=== PATIENT | female | born 1980 | race Caucasian/White ===

== ENCOUNTER 2016-08-30 21:10 | Inpatient (IN) | payer OTHER ==
[2016-08-30] MEDS ORDERED: NO HOME MEDICATION (21:48)
[2016-08-31] MEDS ORDERED: VENTOLIN HFA18 G2 (14:41)
[2016-08-31] MEDS ORDERED: LIPITOR20 M1 PO (14:43)
[2016-08-31] MEDS ORDERED: DICLOFENAC SODI75 M2 PO (14:44)
[2016-08-31] MEDS ORDERED: PROTONIX40 M2 PO (14:45)
[2016-09-01] MEDS ORDERED: OXYCODONE HCL5 M1 PO (11:17)
[2016-09-01] MEDS ORDERED: TYLENOL325 M2 PO (11:19)
[2016-09-01] MEDS ORDERED: ASPIRIN325 M3 PO (11:22)
[2016-09-01] MEDS ORDERED: TUMS200 MG PO (11:23)
[2016-09-01] MEDS ORDERED: DULCOLAX10 MG PR (11:24)
[2016-09-01] MEDS ORDERED: DULCOLAX5 M1 PO (11:25)
[2016-09-01] MEDS ORDERED: MILK OF MAGNESIA PO (11:26)
[2016-09-01] MEDS ORDERED: SENOKOT-S TABL1 EACH PO (11:27)
[2016-09-01] MEDS ORDERED: BENADRYL25 M3 PO (11:29)
== END 2016-09-01 12:20 | DRG 494 ==
LOC: 5EB 21:10 → ORE 08-31 16:23 → PACU 08-31 19:36 → 5EB 08-31 20:43
PROVIDERS: ADMIT Orthopaedic Surgery Sports Medicine
PROC: 0QSJ04Z Reposition Right Fibula with Internal Fixation Device, Open Approach (ICD-10-PCS; principal; 2016-08-31)
PROC: 0QSG04Z Reposition Right Tibia with Internal Fixation Device, Open Approach (ICD-10-PCS; 2016-08-31)
PROC: 0QSG04Z Reposition Right Tibia with Internal Fixation Device, Open Approach (ICD-10-PCS; 2016-08-31)
DX: S82.853A Displaced trimalleolar fracture of unspecified lower leg, initial encounter for closed fracture (principal); W13.8XXA Fall from, out of or through other building or structure, initial encounter; Y93.79 Activity, other specified sports and athletics; Y92.213 High school as the place of occurrence of the external cause
CPT/HCPCS: C1713; J0690; J1170; J2250; J2405; J3010